=== PATIENT | male | born 1960 | race American Indian/Alaskan Native ===

== ENCOUNTER 2017-12-02 10:56 | Day surgery (SDC) | payer OTHER ==
[2017-12-02] MEDS ORDERED: DIPRIVAN 10 MG/ML IV ONE (11:44)
[2017-12-02] MEDS ORDERED: NACL BACTERIOSTATIC INFILTRATI ONE (11:44)
[2017-12-02] MEDS ORDERED: XYLOCAINE MPF 2% ONE (11:46)
[2017-12-02] MEDS ORDERED: DILAUDID ONE (11:46)
[2017-12-02] MEDS ORDERED: MARCAINE 0.25% INFILTRATI ONE ×2 (12:05→13:39)
--- NOTE | 2017-12-02 12:08 | Anesthesia Consultation ---
Anesthesia Consult and Med Hx - Airway Anesthetic Teeth Evaluation: Good ROM Head & Neck: Adequate Mental/Hyoid Distance: Adequate Mallampati Class: Class II Intubation Access Assessment: Good - Pulmonary Exam CTA: Yes - Cardiac Exam Cardiac Exam: RRR - Pre-Operative Health Status ASA Pre-Surgery Classification: ASA2 Proposed Anesthetic Plan: General - Pulmonary Hx Smoking: Yes (1 PPD X 30 YRS) Hx Sleep Apnea: No (ALAN PRE SCREEN HIGH RISK) - Cardiovascular System Hx Hypertension: No - Other Systems Hx Cancer: No
[2017-12-02] MEDS ORDERED: VERSED IV ONE (12:26)
[2017-12-02] MEDS ORDERED: VERSED IV NR (13:00)
[2017-12-02] MEDS ORDERED: ANCEF/STERILE WATER 2 GM/20 ML IV NR (13:00)
[2017-12-02] MEDS ORDERED: NACL 0.9% 1000 ML 1,000 ML IV SCH (13:00)
[2017-12-02] MEDS ORDERED: DILAUDID IV PRN (13:04)
--- NOTE | 2017-12-02 13:04 | Anesthesia Day of Surgery ---
Anesthesia Day of Surgery - Day of Surgery Patient Examined: Yes Patient H&P Reviewed: Yes Patient is NPO: Yes
--- NOTE | 2017-12-02 14:06 | Short Stay Summary ---
Short Stay Documentation Date of service: 12/02/17 - History H&P: obtained from office - Allergies and Medications Current Medications: Allergies No Known Allergies Allergy (Verified 11/24/17 17:16) Home Medications Medication Instructions Recorded Confirmed Last Taken Type No Known Home Medications [No 11/24/17 11/24/17 Unknown History Reported Home Medications] Active Medications Cefazolin Sodium (Ancef/Sterile Water 2 Gm/20 Ml) 2 gm IV PREOP NR Stop: 12/02/17 23:59 Hydromorphone HCl (Dilaudid) 0.5 mg IV Q10MIN PRN PRN Reason: Pain , Severe (7-10) Stop: 12/03/17 23:00 Sodium Chloride (Nacl 0.9% 1000 Ml) 1,000 mls @ 100 mls/hr IV DIRECT SUSHANT Last Admin: 12/02/17 12:30 Dose: 100 mls/hr Midazolam HCl (Versed) 2 mg IV ONCE NR Stop: 12/02/17 23:59 - Brief post op/procedure progress note Date of procedure: 12/02/17 Pre-op diagnosis: phimosis Post-op diagnosis: same Procedure: circ Anesthesia: GETA Surgeon: TATA BRAGG Estimated blood loss: minimal Pathology: list Specimen disposition: to lab Condition: stable - Hospital course Hospital course: norco on chart,ok to remove dressing in am - Disposition Condition at discharge: Stable Disposition: DC-01 TO HOME OR SELFCARE Short Stay Discharge Plan Follow up with: DR FATOU [Other] - 7 Days
--- NOTE | 2017-12-02 14:22 | Operative Report ---
PREOPERATIVE DIAGNOSIS: Phimosis. POSTOPERATIVE DIAGNOSIS: Phimosis. PROCEDURE: Circumcision. SURGEON: Bryon Perez MD ANESTHESIA: General. ESTIMATED BLOOD LOSS: Minimal. FLUIDS: Crystalloid. COMPLICATIONS: No complications. INDICATIONS: This patient is a 57-year-old gentleman seen in the office for difficulty retract his foreskin. The patient actually recently got it caught in zipper, presents now for surgical intervention. Risks, benefits, and complications were explained. DESCRIPTION OF PROCEDURE: The patient was taken to the operative suite, placed in a supine position. After adequate general anesthesia, foreskin was marked at the level of the coronal ridge. It was circumferentially removed and sent for routine pathologic evaluation. Proximal shaft skin was retracted. Adequate hemostasis achieved. Skin was reapproximated and closed with 2-0 chromic in interrupted fashion. Xeroform gauze and Coban was placed around the shaft. The patient tolerated the procedure well, was extubated and taken to recovery room. He can remove his dressing in the morning and go home. He will go home on [place]. JOB# [id number] CECIL/JOSÉ LUIS
--- NOTE | 2017-12-02 14:29 | Post Anesthesia Evaluation ---
- Post Anesthesia Evaluation Patient Participated: Yes Airway Patent: Yes Stable Respiratory Function: Yes Nausea/Vomiting: No Temp > 96.8F: Yes Pain Manageable: Yes Adequeate Hydration: Yes Anesthesia Complications: No
[2017-12-02 14:55] VITALS: BP 148/98
== END 2017-12-02 15:09 | disposition home or self-care (01) ==
LOC: OR 10:56
PROVIDERS: ATTEND Urology
DX: N47.1 Phimosis (principal); I10 Essential (primary) hypertension
CPT/HCPCS: 54161; 88304; J0690; J1170; J2250; J2704; J7030